=== PATIENT | female | born 1965 | race Hispanic/Latino ===

== ENCOUNTER 2018-03-25 23:29 | Emergency (ER) | payer OTHER ==
[2018-03-26 00:07] VITALS: BP 118/77
--- NOTE | 2018-03-26 01:53 | Cat Scan Report ---
FINAL REPORT EXAM: CT HEAD/BRAIN WO CON HISTORY: fall TECHNIQUE: Routine axial imaging was obtained the brain without IV contrast. FINDINGS: There is mild atrophy. There is no evidence of acute stroke or hemorrhage. The ventricular system is appropriate in size and is symmetric. The sinuses reveal patchy mucosal thickening in the ethmoidal air cells and left sphenoid sinus. The mastoid air cells are well pneumatized. There is a small left parietal scalp hematoma. There is no evidence of skull fracture. IMPRESSION: Small left parietal scalp hematoma without skull fracture. Mild generalized volume loss. No acute stroke or hemorrhage. Mild sinusitis as described.
--- NOTE | 2018-03-26 02:54 | Emergency Department Report ---
Head Injury w/o Laceration - HPI Chief Complaint: Fall Stated Complaint: FALL Time Seen by Provider: 03/26/18 02:23 Occurred When: Yesterday Mechanism: Fall Location: Occipital Severity: moderate Head Inj w/o Lac: Yes Swelling, Yes Bruising, Yes Break in Skin, Yes Bleeding, No Loss of Consciousness, No Nausea, No Blurred Vision, No Altered Mental Status , No Headache, No Focal Deficit Other History: This is a 52-year-old female who presents with laceration to occipital scalp and pain status post fall yesterday. Patient reports walking in hotel room and falling. She was walking in between the bathroom and [facility] and missed a step. She fell hitting her he on something in the room. She does not recall losing consciousness. She noticed a large amount of bleeding from the back of her head. Patient reports history of multiple falls, anxiety depression, thyroid disease, and herniated disks. Patient reports having to take a flight in a couple of hours to visit family in [place]. Denies loss of consciousness, chest pain, shortness of breath, dizziness, and visual changes. ED General PMH - Social History Smoking Status: Current Every Day Smoker Alcohol Use: occasionally ED Neuro ROS - Review of Systems Constitutional: denies: no symptoms reported, see HPI, chills, diaphoresis, fever, malaise, weakness, other Eyes (ROS): denies: no symptoms reported, see HPI, blindness, blurred vision, vision change, drainage, decreased acuity, foreign body sensation, inflammation , pain, photophobia, previous injury, shadows, tunnel vision, contact lenses, glasses, other Respiratory: denies: no symptoms reported, see HPI, cough, orthopnea, short of breath, stridor, wheezing, other Cardiology: denies: no symptoms reported, see HPI, chest pain, edema, palpitations, syncope, other Gastrointestinal/Abdominal: denies: no symptoms reported, see HPI, abdominal pain, constipation, diarrhea, nausea, vomiting, other Musculoskeletal: denies: no symptoms reported, see HPI, back pain, gout, joint pain, joint swelling, muscle pain, muscle stiffness, neck pain, other Skin: lesions (laceration to posterior scalp). denies: no symptoms reported, see HPI, change in color, change in hair/nails, dryness, lumps, rash, other Neurological: denies: no symptoms reported, see HPI, anxiety, depressed, emotional problems, cognitive dysfunction, headache, numbness, petit mal seizures, tingling, tonic-clonic seizures, unable to move lower ext, unable to move upper ext, weakness, other Head Injury W/O Lac Exam - Exam General: Vital signs noted. No distress. Alert and acting appropriately. Head: Yes Pupils are PERRL, Yes Hematoma/Ecchymosis (left occipital), Yes Laceration (2 cm laceration to the left occipital, no active bleeding, tenderness, surrounding swelling), No Hemotympanum, No Epistaxis, No Stepoff/ Deformity, No Abrasion Chest, Abd, & Ext: Yes Clear Lung Sounds, Yes Regular Heart Rhythm, No Neck Pain , No Chest Injury/Pain, No Heart Murmur, No Abdominal Tenderness, No Back Tenderness, No Extremity Injury Neuroligical (Head Inj W/O Lac: Yes Normal Speech, Yes Normal Gait, No Lethargy , No Disorientation, No Focal Numbness, No Focal Weakness - Laceration /Wound Repair Left Posterior Medial Occipital Wound Location: head (left occipital) Wound Length (cm): 2 Wound's Depth, Shape: into muscle, linear Wound Explored: no foreign body removed Irrigated w/ Saline (ccs): 5 Betadine Prep?: Yes Wound Repaired With: sutures Number of Sutures: 2 (Enid) Layer Closure?: No ED Critical Care Note - Critical Care Note Comments: This is a 52 y.o. female that presents with 2 cm laceration to left occipital scalp status post fall yesterday. Patient examined by me. Vital stable. Patient is non-toxic appearing and stable. CT of head obtained and read by radiologist. Impression: Small left parietal scalp hematoma without skull fracture. Mild generalized volume loss. No acute stroke or hemorrhage. Mouth sinusitis as described. Physical examination of hematoma and laceration of left occipital scalp. Laceration closed with 2 sutures, review laceration note. Discharged home for outpatient treatment with Keflex and tramadol. Discussed ER care plan with patient. Patient agreed with plan. F/U with PCP in 5 -7 days for staple removal. ED Disposition Clinical Impression: Hematoma of scalp Qualifiers: Encounter type: initial encounter Qualified Code(s): S00.03XA - Contusion of scalp, initial encounter Laceration of scalp Qualifiers: Encounter type: initial encounter Qualified Code(s): S01.01XA - Laceration without foreign body of scalp, initial encounter Disposition: - TO HOME OR SELFCARE Is pt being admited?: No Does the pt Need Aspirin: No Condition: Stable Instructions: Laceration (ED), Contusion in Adults (ED), Staple Care (ED) Additional Instructions: Take antibiotics as prescribed for the full course. Have enid removed in 5-7 days. Clean wound in 24 hours with soap and water. Follow up with Primary Care Provider in 2-3 days. Return to ER if red, swollen, foul discharge, or fever. Prescriptions: Cephalexin [Keflex] 500 mg PO Q12HR #14 cap traMADol [Ultram 50 MG tab] 50 mg PO Q6HR PRN #15 tablet PRN Reason: Pain Referrals: [facility] [Outside] - 3-5 Days [facility] [Outside] - 3-5 Days Time of Disposition: 02:52 Print Language: MACEDONIAN
[2018-03-26] MEDS ORDERED: BOOSTRIX IM ONE (03:02)
[2018-03-26] MEDS: BOOSTRIX IM ONE ×2 (03:05→03:07)
== END 2018-03-26 03:30 | disposition home or self-care (01) ==
LOC: ED 23:29
DX: S00.03XA Contusion of scalp, initial encounter (principal); F17.200 Nicotine dependence, unspecified, uncomplicated; Z88.5 Allergy status to narcotic agent; Z88.6 Allergy status to analgesic agent; Z88.8 Allergy status to other drugs, medicaments and biological substances; W10.8XXA Fall (on) (from) other stairs and steps, initial encounter; Y93.89 Activity, other specified; Y92.89 Other specified places as the place of occurrence of the external cause; Y99.8 Other external cause status
CPT/HCPCS: 70450; 90715; 99284